=== PATIENT | female | born 1970 | race Caucasian/White ===

== ENCOUNTER 2019-05-16 19:28 | Emergency (ER) | payer OTHER ==
[~2019-05-16] VITALS: Ht 152.4 cm; Wt 68.0 kg
== END 2019-05-16 23:18 | disposition home or self-care (01) ==
LOC: ER 19:28
DX: S52.611A Displaced fracture of right ulna styloid process, initial encounter for closed fracture (principal); S52.531A Colles' fracture of right radius, initial encounter for closed fracture; S52.351A Displaced comminuted fracture of shaft of radius, right arm, initial encounter for closed fracture; M79.601 Pain in right arm; W18.09XA Striking against other object with subsequent fall, initial encounter; Y93.89 Activity, other specified; Y92.89 Other specified places as the place of occurrence of the external cause; Y99.8 Other external cause status